=== PATIENT | female | born 1975 | race Caucasian/White ===

== ENCOUNTER 2019-04-30 11:45 | Emergency (ER) | payer OTHER ==
[2019-04-30 11:54] VITALS: BMI 29.0
--- NOTE | 2019-04-30 12:14 | PDOC ---
History of Present Illness - General Chief Complaint: Pain Stated Complaint: BACK PAIN (10 WEEKS) Time Seen by Provider: 04/30/19 12:13 - History of Present Illness Initial Comments: 04/30/19 12:30 44 year old woman A1 with a history of lumbar herniation who presents with low back pain worse for 2 days and some LLQ abdominal pain. The patient reports that she saw here PCP 2 weeks ago who gave her tylenol for the pain which she used with relief, but after she completed the medications her pain has returned. She denies any other complaints and denies any vaginal bleeding. ROS GENERAL/CONSTITUTIONAL: No fever or chills. No weakness. HEAD, EYES, EARS, NOSE AND THROAT: No change in vision. No ear pain or discharge. No sore throat. CARDIOVASCULAR: No chest pain or shortness of breath RESPIRATORY: No cough, wheezing, or hemoptysis. GASTROINTESTINAL: No nausea, vomiting, diarrhea or constipation. GENITOURINARY: No dysuria, frequency, or change in urination. MUSCULOSKELETAL: No joint or muscle swelling or pain. No neck or back pain. SKIN: No rash NEUROLOGIC: No headache, vertigo, loss of consciousness, or change in strength/ sensation. PE GENERAL: Awake, alert, and fully oriented, in no acute distress HEAD: No signs of trauma, normocephalic, atraumatic EYES: EOMI, sclera anicteric, conjunctiva clear ENT: oropharynx clear without exudates. Moist mucosa NECK: Normal ROM, supple LUNGS: No distress, speaks full sentences, clear to auscultation bilaterally HEART: Regular rate and rhythm, normal S1 and S2, no murmurs, rubs or gallops, peripheral pulses normal and equal bilaterally. ABDOMEN: Soft, nontender, normoactive bowel sounds. No guarding, no rebound. No masses EXTREMITIES : Normal inspection, Normal range of motion, no edema. No clubbing or cyanosis. NEUROLOGICAL: Cranial nerves II through XII grossly intact. Normal speech, normal gait, no focal sensorimotor deficits SKIN: Warm, Dry, normal turgor, no rashes or lesions noted MDM DDX including but not limited to: r/o ectopic msk ED Course: tvus; single viable iup labs wnl patient improved with lidocaine patch d/c with pcp f/u Maryam Dumont, PGY2 Emergency Medicine Past History - Past Medical History Allergies/Adverse Reactions: Allergies Allergy/AdvReac Type Severity Reaction Status Date / Time morphine Allergy Verified 04/30/19 11:49 Home Medications: Ambulatory Orders Clotrimazole [3-Day Vaginal Cream] 21 gm VG ONCE #1 cream.appl 04/30/19 Lidocaine 5% Patch [Lidoderm -] 1 patch TP DAILY #7 patch 04/30/19 Prenat 115/Iron Fum/Folic/Dss [ 19 Tablet] 1 each PO DAILY 04/30/19 Asthma: Yes COPD: No - Psycho Social/Smoking Cessation Hx Smoking History: Never smoked *Physical Exam - Vital Signs Last Vital Signs Temp Pulse Resp BP Pulse Ox 97.9 F 77 18 121/56 L 99 04/30/19 11:51 04/30/19 11:51 04/30/19 11:51 04/30/19 11:51 04/30/19 11:51 ED Treatment Course - LABORATORY CBC & Chemistry Diagram: 04/30/19 12:33 04/30/19 12:33 Discharge - Discharge Information Problems reviewed: Yes Clinical Impression/Diagnosis: Muscle pain Condition: Stable Disposition: HOME - Admission No - Additional Discharge Information Prescriptions: Clotrimazole [3-Day Vaginal Cream] 21 gm VG ONCE #1 cream.appl Lidocaine 5% Patch [Lidoderm -] 1 patch TP DAILY #7 patch - Follow up/Referral Referrals: ON STAFF,NOT [Primary Care Provider] - - Patient Discharge Instructions Patient Printed Discharge Instructions: DI for Muscle Strain Additional Instructions: You were seen in the ED for complaints of muscle pain In the ED you were evaluated with labwork You are advised to follow up with your Primary Care Physician within 1 week You were given a prescription for vaginal yeast infection cream and lidocaine patches Return to the ED immediately if you experience worsening back pain, abdominal pain, fevers, vaginal bleeding or any other concerning symptoms - Post Discharge Activity Work/Back to School Note: Back to Work
--- NOTE | 2019-04-30 12:42 | PDOC ---
Attending Attestation - Resident Resident Name: Maryam Dumont - ED Attending Attestation I have performed the following: I have examined & evaluated the patient, The case was reviewed & discussed with the resident, I agree w/resident's findings & plan, Exceptions are as noted - HPI HPI: 04/30/19 13:34 Ms Patel is a 44 yo F no significant past medical history currently 10 weeks (by dates) presenting with persistent back pain Pt has a history of chronic back pain, has been worked up with MRI (pt has been reportedly diagnosed with herniated discs), she has had PT and spinal injections. [place], walking) which exacerbates her pain Noted back pain 2 weeks ago, for which she was assessed at an outside hospital She was given tylenol for pain Pt states, this has not been effective in decreasing her pain No vaginal bleeding No dysuria, hematuria 04/30/19 14:08 - Physicial Exam PE: 04/30/19 12:42 GENERAL: The patient is in no acute distress. ENT: Moist mucous membranes. No tonsillar enlargement, no exudates LUNGS: Breath sounds equal, clear to auscultation bilaterally. No wheezes, and no crackles. HEART: Regular rate and rhythm, normal S1 and S2 without murmur, rub or gallop. ABDOMEN: Soft, nontender, normoactive bowel sounds. EXTREMITIES: Normal range of motion, no deformities noted MUSCULOSKELETAL: bilateral thoracic pain and lower lumbar midline tenderness NEUROLOGICAL: Cranial nerves II through XII grossly intact. Normal speech. No focal neurological deficits. SKIN: Warm, Dry, normal turgor, no rashes or lesions noted. 04/30/19 13:38 04/30/19 14:13 - Medical Decision Making 04/30/19 13:39 Laboratory Tests 04/30/19 12:25 Urine Blood Negative Urine Nitrite Negative Ur Leukocyte Esterase Negative U/S : single live IUP 8 weeks, 3 days Will get Lidoderm patch, continue tylenol for pain Follow up with OB Return to the ER for any other concerns or complaints 04/30/19 14:14 The lab has lost this patients labs Will plan to discharge to home Pt to follow up with OB and PMD
[2019-04-30 13:17] LABS: PH,URINE 5.5 (5.0-8.0); URINE APPEARANCE CLEAR; URINE BILIRUBIN NEGATIVE (NEGATIVE); URINE COLOR YELLOW; URINE GLUCOSE (UA) NEGATIVE (NEGATIVE); URINE KETONE NEGATIVE (NEGATIVE); URINE LEUK ESTERASE NEGATIVE (NEGATIVE); URINE NITRITE NEGATIVE (NEGATIVE); URINE PROTEIN NEGATIVE (NEGATIVE); URINE UROBILINOGEN 0.2 mg/dL (0.2-1.0)
[2019-04-30] MEDS ORDERED: LIDOCAINE 5% TOPICAL PATCH TP ONE (13:29)
[2019-04-30] MEDS ORDERED: LIDOCAINE 5% TOPICAL PATCH ONE (14:13)
[2019-04-30 14:48] LABS: BASO % 0.3 % (0-2.0); EOS % 1.8 % (0-4.5); HEMOGLOBIN 10.2 GM/dL (10.7-15.3); LYMPH % 20.7 % (8-40); MCH 23.6 pg (25.7-33.7); MCHC 31.1 g/dl (32.0-36.0); MEAN CELL VOLUME 75.8 fl (80-96); MEAN PLT VOLUME 9.5 fl (7.5-11.1); MONO % 6.8 % (3.8-10.2); NEUT % 70.4 % (42.8-82.8); PLATELET COUNT 392 K/MM3 (134-434); RBC 4.35 M/mm3 (3.60-5.2); RDW 16.2 % (11.6-15.6); WHITE BLOOD COUNT 10.3 K/mm3 (4.0-10.0)
[2019-04-30 15:10] LABS: ALBUMIN 3.5 g/dl (3.4-5.0); BILIRUBIN,TOTAL 0.5 mg/dL (0.2-1); BLOOD UREA NITROGEN 10.4 mg/dL (7-18); CALCIUM 9.1 mg/dL (8.5-10.1); CREATININE 0.5 mg/dL (0.55-1.3); POTASSIUM 3.7 mmol/L (3.5-5.1); TOT PROT 7.7 g/dl (6.4-8.2)
[2019-04-30 15:14] VITALS: BP 109/65; PULSE 62; TEMP 97.4
[2019-04-30] MEDS ORDERED: LIDOCAINE PATCH REMOVAL MC SCH (22:00)
== END 2019-04-30 15:14 | disposition home or self-care (01) ==
LOC: JER 11:45
DX: O26.91 Pregnancy related conditions, unspecified, first trimester (principal); M54.5 Low back pain; Z3A.08 8 weeks gestation of pregnancy; Z88.5 Allergy status to narcotic agent
CPT/HCPCS: 36415; 76801-TC; 80053; 81003; 84702; 85025; 87086; 99284-25

== ENCOUNTER 2019-07-26 02:54 | Emergency (ER) | payer OTHER ==
[2019-07-26] MEDS ORDERED: SODIUM CHLORIDE 0.9% 500 ML INFUS.BAG IV ONE (03:05)
--- NOTE | 2019-07-26 03:36 | PDOC ---
Attending Attestation - Resident Resident Name: LovellAusten - ED Attending Attestation I have performed the following: I have examined & evaluated the patient, The case was reviewed & discussed with the resident, I agree w/resident's findings & plan - HPI HPI: 07/26/19 03:32 see resident hpi - Physicial Exam PE: 07/26/19 03:35 agree with resident exam - Medical Decision Making 07/26/19 03:35 44-year-old gravid female with vomiting after eating at a diner, her is being seen at this facility for similar symptoms Patient seen and cleared by labor and delivery Plan for IV fluids, antiemetics When tolerating p.o. will DC home
--- NOTE | 2019-07-26 03:40 | PDOC ---
History of Present Illness - General Stated Complaint: N/V Time Seen by Provider: 07/26/19 03:25 - History of Present Illness Initial Comments: Ms. Patel is a 44 y/o female with PMH of asthma, @ 22 weeks presenting today with nausea and vomiting that started around midnight. Reports that she was eating at a diner with her around 3pm today. Subsequently began having around 10 episodes of nausea/vomiting diarrhea. No blood in the vomit or stool. No headache. No chest pain/shortness of breath. Reports epigastric abdominal pain. Pain does not radiate. Denies fever/chills. Past History - Past Medical History Allergies/Adverse Reactions: Allergies Allergy/AdvReac Type Severity Reaction Status Date / Time morphine Allergy Severe Difficulty Verified 07/26/19 03:39 Breathing Home Medications: Ambulatory Orders Prenat 115/Iron Fum/Folic/Dss [ 19 Tablet] 1 each PO DAILY 04/30/19 Doxylamine Succinate/Vit B6 [Diclegis Dr 10-10 mg Tablet] 1 each PO UTDICT 5 Days #20 tablet. 07/26/19 Ferrous Sulfate [Iron] 325 mg PO BID 07/26/19 Asthma: Yes COPD: No - Reproductive History (#): 5 Para: 3 - Psycho Social/Smoking Cessation Hx Smoking History: Never smoked Review of Systems - Review of Systems Comments:: GENERAL/CONSTITUTIONAL: No fever or chills. No weakness._ HEAD, EYES, EARS, NOSE AND THROAT: No change in vision. No change in hearing. No sore throat._ CARDIOVASCULAR: No chest pain or shortness of breath_ RESPIRATORY: Denies cough, hemoptysis_ GASTROINTESTINAL: Reports epigastric abdominal pain, nausea, vomiting, diarrhea. GENITOURINARY: No dysuria, frequency, or change in urination._ MUSCULOSKELETAL: No joint or muscle swelling or pain. No neck or back pain._ SKIN: No rash_ NEUROLOGIC: No headache, vertigo, loss of consciousness, or change in strength/ sensation._ ENDOCRINE: No increased thirst. No abnormal weight change_ HEMATOLOGIC/LYMPHATIC: No anemia, easy bleeding, or history of blood clots._ ALLERGIC/IMMUNOLOGIC: No hives or skin allergy._ *Physical Exam - Physical Exam GENERAL: Awake, alert, and oriented to person/place/time, in no acute distress_ HEAD: No signs of trauma, normoc ephalic, atraumatic _ EYES: PERRLA, EOMI, sclera anicteric, conjunctiva clear_ ENT: Hearing grossly normal, nares patent, oropharynx clear without exudates. No uvular deviation. Moist mucosa_ NECK: Normal ROM, supple, no lymphadenopathy, JVD, or masses_ LUNGS: No distress, speaks in full sentences, clear to auscultation bilaterally _ HEART: Regular rate and rhythm, normal S1 and S2, no murmurs appreciated, peripheral pulses normal and equal bilaterally._ ABDOMEN: Soft, epigastric TTP, normoactive bowel sounds. No guarding, no rebound. No masses_ EXTREMITIES: Normal inspection, Normal range of motion, no edema. No clubbing or cyanosis_ NEUROLOGICAL: Cranial nerves II through XII grossly intact. Normal speech, normal gait, no focal sensorimotor deficits _ SKIN: Warm, Dry, normal turgor, no rashes or lesions noted_ ED Treatment Course - LABORATORY CBC & Chemistry Diagram: 07/26/19 03:45 07/26/19 03:45 Medical Decision Making - Medical Decision Making 07/26/19 03:43 44F at 22 weeks here for N/V/D x10 since midnight. -cbc, cmp, lipase, mg -fluids, tylenol 07/26/19 05:00 Labs reviewed. Pt reassessed. Reports that she continues to have nausea -reglan -1L LR Laboratory Tests 07/26/19 07/26/19 07/26/19 03:45 03:45 03:45 WBC 14.0 H RBC 4.30 Hgb 12.0 Hct 36.7 MCV 85.2 MCH 27.8 D MCHC 32.6 RDW 22.3 H Plt Count 253 D MPV 9.4 Absolute Neuts (auto) 13.0 H Neutrophils % 93.0 H D Lymphocytes % 3.4 L D Monocytes % 2.8 L Eosinophils % 0.7 Basophils % 0.1 Nucleated RBC % 0 Sodium 136 Potassium 4.0 Chloride 105 Carbon Dioxide 24 Anion Gap 7 L BUN 9.5 Creatinine 0.4 L Est GFR (CKD-EPI)AfAm 145.79 Est GFR (CKD-EPI)NonAf 125.79 Random Glucose 111 H Calcium 8.5 Magnesium 1.8 Total Bilirubin 0.3 AST 20 ALT 20 Alkaline Phosphatase 80 Total Protein 6.4 Albumin 2.4 L Lipase 352 07/26/19 06:25 Pt reassessed. Continuing to receive LR. Reports continued nausea and epigastric abdominal pain. -mike bhatt 07/26/19 07:[address] Mei. Discharge - Discharge Information Problems reviewed: Yes Clinical Impression/Diagnosis: Nausea vomiting and diarrhea Condition: Stable Disposition: HOME - Admission No - Additional Discharge Information Prescriptions: Doxylamine Succinate/Vit B6 [Samira Lawrence 10-10 mg Tablet] 1 each PO UTDICT 5 Days #20 tablet.dr - Follow up/Referral Referrals: ON STAFF,NOT [Primary Care Provider] - John Bates MD [Staff Physician] - - Patient Discharge Instructions Patient Printed Discharge Instructions: DI for Diarrhea and Traveler's Diarrhea -- Adult, DI for Vomiting -- Adult Additional Instructions: Please keep yourself hydrated with fluids as much as possible. Please make a follow up appointment with your primary care doctor if your symptoms do not improve within a few days. Referral provided here. If you experience any new, worsening or concerning symptoms, including high fever, severe abdominal pain, blood in the vomit or stool, lethargy, or any other concerns, please return to the emergency department. - Post Discharge Activity Work/Back to School Note: Back to Work
[2019-07-26 03:43] VITALS: BMI 37.1
[2019-07-26] MEDS ORDERED: ACETAMINOPHEN 1000 MG/100 ML VIAL (NON FORMULARY) IVPB ONE (03:44)
[2019-07-26] MEDS ORDERED: ACETAMINOPHEN INJECTION 100 ML IVPB ONE (04:01)
[2019-07-26 04:14] LABS: BASO % 0.1 % (0-2.0); EOS % 0.7 % (0-4.5); HEMATOCRIT 36.7 % (32.4-45.2); LYMPH % 3.4 % (8-40); MCH 27.8 pg (25.7-33.7); MCHC 32.6 g/dl (32.0-36.0); MEAN CELL VOLUME 85.2 fl (80-96); MEAN PLT VOLUME 9.4 fl (7.5-11.1); MONO % 2.8 % (3.8-10.2); PLATELET COUNT 253 K/MM3 (134-434); RDW 22.3 % (11.6-15.6)
[2019-07-26 04:40] LABS: ALBUMIN 2.4 g/dl (3.4-5.0); BILIRUBIN,TOTAL 0.3 mg/dL (0.2-1); BLOOD UREA NITROGEN 9.5 mg/dL (7-18); CALCIUM 8.5 mg/dL (8.5-10.1); CREATININE 0.4 mg/dL (0.55-1.3); MAGNESIUM 1.8 mg/dL (1.8-2.4); TOT PROT 6.4 g/dl (6.4-8.2)
[2019-07-26] MEDS ORDERED: METOCLOPRAMIDE HCL INJECTION 10 MG/2 ML VIAL IVPUSH ONE (05:42)
[2019-07-26] MEDS ORDERED: METOCLOPRAMIDE HCL INJECTION 10 MG/2 ML VIAL IVPB ONE (05:42)
[2019-07-26] MEDS ORDERED: LACTATED RINGERS SOLUTION 1,000 ML/1,000 ML INFUS.BAG IV SCH (05:45)
[2019-07-26] MEDS ORDERED: METOCLOPRAMIDE HCL INJECTION 10 MG/2 ML VIAL ONE (05:56)
[2019-07-26] MEDS ORDERED: MAG HYDROX/AL HYDROX/SIMETH -MYLANTA- ORAL SUSPENSION PO ONE (06:24)
[2019-07-26] MEDS ORDERED: FAMOTIDINE 20 MG TABLET PO ONE (06:24)
[2019-07-26] MEDS ORDERED: MAG HYDROX/AL HYDROX/SIMETH 30 ML UNIT-DOSE CUP ONE (06:31)
[2019-07-26] MEDS ORDERED: FAMOTIDINE 20 MG TABLET ONE (06:31)
--- NOTE | 2019-07-26 07:11 | PDOC ---
*Physical Exam - Vital Signs Last Vital Signs Temp Pulse Resp BP Pulse Ox 98.9 F 92 H 18 121/82 99 07/26/19 03:00 07/26/19 03:00 07/26/19 03:00 07/26/19 03:00 07/26/19 03:00 ED Treatment Course - LABORATORY CBC & Chemistry Diagram: 07/26/19 03:45 07/26/19 03:45 - ADDITIONAL ORDERS Additional order review: Laboratory Results 07/26/19 07/26/19 03:45 03:45 Sodium 136 Potassium 4.0 Chloride 105 Carbon Dioxide 24 Anion Gap 7 L BUN 9.5 Creatinine 0.4 L Est GFR (CKD-EPI)AfAm 145.79 Est GFR (CKD-EPI)NonAf 125.79 Random Glucose 111 H Calcium 8.5 Magnesium 1.8 Total Bilirubin 0.3 AST 20 ALT 20 Alkaline Phosphatase 80 Total Protein 6.4 Albumin 2.4 L Lipase 352 07/26/19 03:45 RBC 4.30 MCV 85.2 MCHC 32.6 RDW 22.3 H MPV 9.4 Neutrophils % 93.0 H D Lymphocytes % 3.4 L D Monocytes % 2.8 L Eosinophils % 0.7 Basophils % 0.1 - Medications Given in the ED: ED Medications Discontinued Medications Generic Name Dose Route Start Last Admin Trade Name Freq PRN Reason Stop Dose Admin Acetaminophen 1,000 mg 07/26/19 03:44 07/26/19 04:04 Ofirmev Injection - IVPB 07/26/19 03:45 1,000 mg ONCE ONE Administration Al Hydroxide/Mg Hydroxide 30 ml 07/26/19 06:24 07/26/19 06:34 Mylanta Suspension - PO 07/26/19 06:25 30 ml ONCE ONE Administration Famotidine 20 mg 07/26/19 06:24 07/26/19 06:34 Pepcid - PO 07/26/19 06:25 20 mg ONCE ONE Administration Metoclopramide HCl 10 mg 07/26/19 05:42 07/26/19 06:05 Reglan Injection - IVPB 07/26/19 05:43 10 mg ONCE ONE Administration Sodium Chloride 1,000 ml 07/26/19 03:05 07/26/19 03:52 Normal Saline - IV 07/26/19 03:06 1,000 ml ONCE ONE Administration Medical Decision Making - Medical Decision Making 07/26/19 07:10 at 22 weeks already cleared by OB for discharge. has received fluids h1L NS, now on 1L of LR reglan,pepcid, mallox, tylenol, 1 episode of emesis in the ED NBNB to do finish LR and go home, discharge already down Discharge - Discharge Information Problems reviewed: Yes Clinical Impression/Diagnosis: Nausea vomiting and diarrhea Condition: Stable Disposition: HOME - Follow up/Referral Referrals: John Bates MD [Staff Physician] - ON STAFF,NOT [Primary Care Provider] - - Patient Discharge Instructions Patient Printed Discharge Instructions: DI for Diarrhea and Traveler's Diarrhea -- Adult, DI for Vomiting -- Adult Additional Instructions: Please keep yourself hydrated with fluids as much as possible. Please make a follow up appointment with your primary care doctor if your symptoms do not improve within a few days. Referral provided here. If you experience any new, worsening or concerning symptoms, including high fever, severe abdominal pain, blood in the vomit or stool, lethargy, or any other concerns, please return to the emergency department. - Post Discharge Activity Work/Back to School Note: Back to Work
[2019-07-26 08:09] VITALS: TEMP 97.9
[2019-07-26 08:37] VITALS: BP 116/73; PULSE 81
[2019-07-26] MEDS ORDERED: ONDANSETRON *ODT* 4 MG TABLET SL ONE (08:40)
[2019-07-26] MEDS ORDERED: ONDANSETRON *ODT* 4 MG TABLET ONE (08:41)
[2019-07-26 10:08] LABS: ANISOCYTOSIS 1+; MACROCYTOSIS 0; PLATELET ESTIMATE NORMAL
== END 2019-07-26 08:49 | disposition home or self-care (01) ==
LOC: JER 02:54
DX: O26.892 Other specified pregnancy related conditions, second trimester (principal); R11.2 Nausea with vomiting, unspecified; R19.7 Diarrhea, unspecified; Z3A.22 22 weeks gestation of pregnancy
CPT/HCPCS: 36415; 80053; 83690; 83735; 85025; 99283-25; J0131; Q0162